=== PATIENT | male | born 1935 ===

== ENCOUNTER 2024-07-12 16:03 | Outpatient (NON) | payer MEDICARE, BC, SELFPAY ==
[2024-07-12 16:54] LABS: Basophils Absolute Auto 0.04 K/mm3 (0.00-0.10); Basophils Percent Auto 0.3 % (0.0-1.0); Hemoglobin 8.5 g/dL (12.4-15.3); Immature Granulocyte Absolute 0.09 K/mm3 (0.00-0.00); Immature Granulocyte Percent A 0.7 % (0.0-0.0); Lymphocytes Absolute Auto 1.47 K/mm3 (1.10-4.50); Lymphocytes Percent Auto 11.4 % (18.0-42.0); Mean Corpuscular HGB Conc 30.4 g/dL (32-36); Mean Corpuscular Hemoglobin 32.4 pg (27.0-31.0); Mean Corpuscular Volume 106.9 fL (78.0-102.0); Mean Platelet Volume 9.9 fl (8.7-11.0); Monocytes Percent Auto 3.1 % (2.0-11.0); Neutrophils Percent Auto 84.5 % (50.0-70.0); Platelet Count Result 335 K/mm3 (150-420); Red Blood Count 2.62 M/mm3 (4.70-6.10); Red Cell Distribution Width 24.8 % (11.6-14.4); White Blood Count 12.9 K/mm3 (4.8-10.8)
[2024-07-13 14:21] LABS: Anion Gap 7 mmol/L (4-12); Blood Urea Nitrogen 21 mg/dL (7-18); Calcium 8.3 mg/dL (8.5-10.1); Carbon Dioxide 28 mmol/L (21-32); Chloride 102 mmol/L (98-108); Estimated Glomerular Filt Rate 43; Glucose 118 mg/dL (70-99); Iron 88 ug/dL (65-175); Osmolality Calculated 288 mOsm/kg (285-295); Potassium 4.6 mmol/L (3.5-5.1); Sodium 137 mmol/L (136-145); Vitamin B12 498 pg/mL (193-986)
== END 2024-07-12 16:04 | disposition home or self-care (01) ==
LOC: CHSLAB 16:20
PROVIDERS: Visit Provider Family Medicine
DX: D64.9 Anemia, unspecified (principal)
CPT/HCPCS: 36415; 80048; 82607; 83540; 85025